=== PATIENT | female | born 1940 | race Caucasian/White ===

== ENCOUNTER 2020-06-20 18:14 | Inpatient (IN) | payer MEDICARE ==
[~2020-06-20 18:14] MED LIST: Iopamidol-370 76% 500 ML 1 ML ONE
[2020-06-20 19:23] LABS: Hemoglobin 15.1 g/dL (12.0-16.0); Mean Corpuscular HGB CONC 32.9 g/dL (32.0-36.0); Mean Corpuscular Volume 94.4 fL (78.0-98.0); Platelet Count 284 thou/uL (130-400); RBC Distribution Width 12.7 % (11.5-14.5); Red Blood Cell (RBC) Count 4.87 mill/uL (4.20-5.40); White Blood Cell (WBC) Count 14.1 thou/uL (4.8-10.8)
--- NOTE | 2020-06-20 19:34 | RAD ---
EXAM: Single view of the chest HISTORY: Covid pneumonia with low oxygen saturation COMPARISON: None FINDINGS: Single view of the chest shows a normal sized cardiomediastinal silhouette. Atheroscleroti c calcifications are seen in the aorta. Diffuse multifocal scattered infiltrates are seen in the lungs. No pleural effusion is seen. No acute osseous abnormality. IMPRESSION: Multifocal infiltrates
[2020-06-20 19:41] LABS: ALT (SGPT) 24 U/L (8-55); AST (SGOT) 17 U/L (5-34); Albumin 3.4 g/dL (3.4-4.8); Alkaline Phosphatase 100 U/L (40-110); Anion Gap 21 mmol/L (10-20); BUN (Urea Nitrogen) 37 mg/dL (9.8-20.1); Band 2 % (5-11); CK (CPK) 36 U/L (29-168); Calc. Creatinine Clearance 0 mL/min (70-130); Calcium 8.8 mg/dL (7.8-10.44); Carbon Dioxide 22 mmol/L (23-31); Chloride 104 mmol/L (98-107); Globulin 3.7 g/dL (2.4-3.5); Glucose 137 mg/dL (83-110); Lymphocytes 6 % (21-51); MDiff Complete? YES; Monocytes 6 % (0-10); Neutrophil 86 % (42-75); Platelet Morphology Comment Appears Adequate; Potassium 3.3 mmol/L (3.5-5.1); Protein, Total 7.1 g/dL (6.0-8.3); RBC Morphology Normal; Sodium 144 mmol/L (136-145)
[2020-06-20] MEDS ORDERED: cefTRIAXone\\ROCEPHIN 2 GM VIAL ONE (21:33)
[2020-06-20] MEDS ORDERED: Dexamethasone 10 MG/ML VIAL ONE (21:33)
--- NOTE | 2020-06-20 21:56 | PDOC.HHP ---
Hospitalist HPI - History of Present Illness Hypoxia, shortness of breath History of Present Illness: This is a 80-year-old female patient with a history of Alzheimer's disease, high lipidemia and hypertension who was brought in from her care home on account of worsening shortness of breath and hypoxia. She tested positive for Covid at the facility. It is unclear the date. Given patient's state of dementia she is unable to provide significant history. Of note however EMS was activated and she was brought in for further management. At presentation her blood pressure was 178/85, respiratory 22, saturating 79 on 4 L oxygen. Heart rate was 87. Labs showed WBC 14.1, creatinine 0.73, potassium 3.3 and lactic acid 2.5. Chest imaging was consistent with Covid. She was started on azithromycin and ceftriaxone as well as Proventil and Decadron. Hospitalist team consulted for admission. Hospitalist ROS - Review of Systems ROS unobtainable: due to mental status Hospitalist History - Past Medical History Other Medical History: Dementia, hypertension - Past Surgical History Past Surgical History: reports: no pertinent history - Family History Family History: reports: no pertinent history - Social History Living Situation: Long-Term - Exam General Appearance: awake alert Eye: PERRL, anicteric sclera ENT: normocephalic atraumatic, no oropharyngeal lesions Heart: RRR, no murmur, no gallops, no rubs Respiratory - other findings: Reduced air entry bilaterally. Scattered rhonchi and wheeze Gastrointestinal: soft, non-tender, non-distended, normal bowel sounds Extremities: no cyanosis, no clubbing, no edema Neurological: cranial nerve grossly intact, no focal deficits Psychiatric: oriented to person Psychiatric - other findings: Generally confused. Hospitalist Results - Labs Result Diagrams: 06/20/20 19:11 06/20/20 19:11 Lab results: WBC 14.1 thou/uL (4.8-10.8) H 06/20/20 19:11 Hgb 15.1 g/dL (12.0-16.0) 06/20/20 19:11 Hct 46.0 % (36.0-47.0) 06/20/20 19:11 MCV 94.4 fL (78.0-98.0) 06/20/20 19:11 Plt Count 284 thou/uL (130-400) 06/20/20 19:11 Band Neuts % (Manual) 2 % (5-11) L 06/20/20 19:11 Sodium 144 mmol/L (136-145) 06/20/20 19:11 Potassium 3.3 mmol/L (3.5-5.1) L 06/20/20 19:11 Chloride 104 mmol/L (98-107) 06/20/20 19:11 Carbon Dioxide 22 mmol/L (23-31) L 06/20/20 19:11 BUN 37 mg/dL (9.8-20.1) H 06/20/20 19:11 Creatinine 0.73 mg/dL (0.6-1.1) 06/20/20 19:11 Glucose 137 mg/dL (83-110) H 06/20/20 19:11 Lactic Acid 2.5 mmol/L (0.5-2.2) H 06/20/20 19:11 Calcium 8.8 mg/dL (7.8-10.44) 06/20/20 19:11 Total Bilirubin 1.0 mg/dL (0.2-1.2) 06/20/20 19:11 AST 17 U/L (5-34) 06/20/20 19:11 ALT 24 U/L (8-55) 06/20/20 19:11 Alkaline Phosphatase 100 U/L (40-110) 06/20/20 19:11 Creatine Kinase 36 U/L (29-168) 06/20/20 19:11 Troponin I 0.026 ng/mL (< 0.028) 06/20/20 19:11 Serum Total Protein 7.1 g/dL (6.0-8.3) 06/20/20 19:11 Albumin 3.4 g/dL (3.4-4.8) 06/20/20 19:11 Hospitalist H&P A/P - Plan Plan: This is a 80-year-old female patient with a history of dementia, hypertension who was brought in from a care home facility on account of worsening shortness of breath and hypoxia in the setting of Covid. Acute hypoxic respiratory failure This likely secondary to Covid pneumonia Continue high flow oxygen therapy With this history Pneumonia due to Covid Check CRP and ferritin Start Decadron Start vitamin C and zinc Consider remdesivir and plasma in a.m. Mild lactic acidosis Also has mild leukocytosis I believe this is likely due to Covid infection However she received azithromycin and ceftriaxone We will check urinalysis and resume antibiotics if is positive Hypertension Resume home meds once verified. VT prophylaxisLovenox CODE STATUSfull code
[2020-06-20] MEDS ORDERED: Azithromycin 500 MG VIAL ONE (22:32)
[2020-06-20 22:39] LABS: Lactic Acid 1.7 mmol/L (0.5-2.2)
--- NOTE | 2020-06-20 22:41 | CT ---
EXAM: CTA of the chest HISTORY: Hypoxia and shortness of breath COMPARISON: None TECHNIQUE: Multiple contiguous axial images were obtained a CTA of the chest with contrast per pulmon rolanda embolism protocol. 3-D oblique MIP reformats and direct coronal reformats were performed. FINDINGS: HEART: Cardiomegaly. Calcifications in the coronary arteries and aorta. PULMONARY ARTERIES: Normal in caliber without filling defects to suggest pulmonary emboli. MEDIASTINUM: No hilar or mediastinal lymphadenopathy. LUNGS: Diffuse increased interstitial markings are seen along the periphery of the lungs. There may b e subtle superimposed airspace opacities versus atelectasis in the bilateral lower lobes. PLEURAL SPACE: No pleural effusion or pneumothorax. CHEST WALL SOFT TISSUES: Post left mastectomy. VISUALIZED OSSEOUS STRUCTURES: Degenerative changes in the spine. VISUALIZED SUBDIAPHRAGMATIC STRUCTURES: There is a hypodensity in the left kidney which may represent a cyst. There is a 1.5 cm left adrenal mass. IMPRESSION: 1. No evidence of pulmonary thromboembolism 2. Chronic interstitial lung disease with superimposed multifocal infiltrates. These infiltrates coul d be secondary to a Covid infection. 3. Left renal cyst 4. Left adrenal mass/nodule.
[2020-06-20] MEDS ORDERED: Albuterol 200 PUFF (6.7GM INHALER) ONE (23:32)
[2020-06-21] MEDS ORDERED: Potassium Chloride 20 MEQ TAB PO SCH (03:30)
[2020-06-21 05:32] LABS: #Basophils 0.1 thou/uL (0.0-0.2); #Lymphocytes 0.7 thou/uL (1.20-3.40); #Monocytes 0.5 thou/uL (0.11-0.59); #Neutrophils 11.3 thou/uL (1.40-6.50); %Basophils 0.6 % (0.0-1.0); %Eosinophils 0.3 % (0.0-10.0); %Lymphocytes 5.7 % (21.0-51.0); %Monocytes 3.6 % (0.0-10.0); %Neutrophils 89.7 % (42.0-75.0); Hemoglobin 14.5 g/dL (12.0-16.0); Mean Corpuscular HGB CONC 32.7 g/dL (32.0-36.0); Mean Corpuscular Hemoglobin 31.3 pg (27.0-31.0); Mean Corpuscular Volume 95.5 fL (78.0-98.0); Platelet Count 311 thou/uL (130-400); RBC Distribution Width 12.8 % (11.5-14.5); Red Blood Cell (RBC) Count 4.63 mill/uL (4.20-5.40); White Blood Cell (WBC) Count 12.6 thou/uL (4.8-10.8)
[2020-06-21 05:52] LABS: CRP (Inflammatory) 17.21 mg/dL (= or < 0.5); Magnesium 2.6 mg/dL (1.6-2.6)
[2020-06-21 05:57] LABS: Anion Gap 16 mmol/L (10-20); BUN (Urea Nitrogen) 39 mg/dL (9.8-20.1); Calc. Creatinine Clearance 0 mL/min (70-130); Calcium 8.7 mg/dL (7.8-10.44); Carbon Dioxide 28 mmol/L (23-31); Chloride 104 mmol/L (98-107); Glucose 144 mg/dL (83-110); Potassium 3.2 mmol/L (3.5-5.1); Sodium 145 mmol/L (136-145)
[2020-06-21] MEDS: Zinc Sulfate 220 MG CAP PO SCH (08:47)
[2020-06-21] MEDS: Dexamethasone 4 mg/ml Vial SLOW IVP SCH (08:47)
[2020-06-21] MEDS: Ascorbic Acid 500 mg Chewable Tablet PO SCH (08:47)
[2020-06-21] MEDS: Enoxaparin Sodium 40 MG/0.4 ML SYRINGE SC SCH (08:48)
[2020-06-21] MEDS: Cholecalciferol (Vitamin D3) 400 UNITS TAB PO SCH (09:20)
[2020-06-21] MEDS ORDERED: Electrolyte Replacement Protocol 1 EACH FS SCH (10:45)
[2020-06-21 11:08] LABS: Bacteria/HPF None Seen HPF (None Seen); Bilirubin Negative (Negative); Blood, Urine Negative (Negative); Clarity Clear (Clear); Glucose, Urine (Dipstick) Normal (Negative); Ketone, Urine Negative (Negative); Leukocyte Negative Leu/uL (Negative); Nitrite Negative (Negative); Protein, Urine (Dipstick) 30 mg/dL (Neg-Trace); RBC/HPF 0-3 HPF (0-3); Specific Gravity, Urine 1.026 (1.002-1.036); Squamous Epithelial None Seen HPF (0-3); Urobilinogen 3 mg/dL (Less than 2); WBC/HPF 0-3 HPF (0-3)
[2020-06-21 11:11] LABS: Urine Culture Reflex No No
[2020-06-21] MEDS ORDERED: FLU VACC QS2020-21(65YR UP)/PF 240 MCG/0.7 ML SYRINGE IM ONE (13:30)
[2020-06-21] MEDS ORDERED: Ipratropium/Albuterol Sulfate 4 GM AER IH PRN (14:08)
[2020-06-21] MEDS ORDERED: Melatonin 3 MG TAB PO PRN (17:10)
--- NOTE | 2020-06-21 17:10 | PDOC.HOSPP ---
- Subjective Encounter Date: 06/21/20 Encounter Time: 12:30 Subjective: Patient up in bed confused. - Objective Vital Signs & Weight: Vital Signs (12 hours) Temp Pulse Resp BP Pulse Ox 06/21/20 16:00 98.3 F 76 20 154/77 H 97 06/21/20 12:00 98.2 F 81 20 160/80 H 95 06/21/20 09:00 98.2 F 72 18 148/72 H 98 06/21/20 05:45 98.0 F 68 18 150/63 H 98 Weight Weight 178 lb 8 oz I&O: 06/20/20 06/21/20 06/22/20 06:59 06:59 06:59 Output Total 800 Balance -800 Result Diagrams: 06/22/20 05:45 06/22/20 05:45 Hospitalist ROS - Review of Systems Other: Patient up in bed confused - Medication Medications: Active Medications Generic Name Dose Route Start Last Admin Trade Name Freq PRN Reason Stop Dose Admin Ascorbic Acid 1,000 mg 06/21/20 09:00 06/21/20 08:47 Ascorbic Acid 500 Mg Chewable Tablet PO 1,000 mg DAILY LISBETH Administration Cholecalciferol 400 units 06/21/20 09:00 06/21/20 09:20 Cholecalciferol (Vitamin D3) 400 Units Tab PO 400 units DAILY LISBETH Administration Dexamethasone 8 mg 06/21/20 09:00 06/21/20 08:47 Dexamethasone 4 Mg/Ml Vial SLOW IVP 8 mg DAILY LISBETH Administration Enoxaparin Sodium 40 mg 06/21/20 09:00 06/21/20 08:48 Enoxaparin Sodium 40 Mg/0.4 Ml Syringe SC 40 mg 09 LISBETH Administration Zinc Sulfate 220 mg 06/21/20 09:00 06/21/20 08:47 Zinc Sulfate 220 Mg Cap PO 220 mg DAILY LISBETH Administration - Exam Heart: negative: RRR, no murmur, no gallops, no rubs, normal peripheral pulses, irregular, diminshed peripheral pulses, murmur present, II/IV, III/IV Respiratory: negative: CTAB, no wheezes, no rales, no ronchi, normal chest expansion, no tachypnea, normal percussion, rales, rhonchi, tachypneic, wheezes Gastrointestinal: negative: soft, non-tender, non-distended, normal bowel sounds, no palpable masses, no hepatomegaly, no splenomegaly, no bruit, no guarding, no rigidity, tender to palpation, distended, diminished bowl sounds, voluntary guarding Hosp A/P (1) Acute respiratory failure with hypoxia Code(s): J96.01 - ACUTE RESPIRATORY FAILURE WITH HYPOXIA Status: Acute (2) COVID-19 Code(s): U07.1 - COVID-19 Status: Acute (3) Acute metabolic encephalopathy Code(s): G93.41 - METABOLIC ENCEPHALOPATHY Status: Acute - Plan Patient currently is on soft restraints she is confused. We will start her home medications. She is currently on high flow. We will continue steroids. She is not a candidate for remdesivir. According to the patient's daughter she was supposed to be taken off isolation yesterday however when her oxygen level was checked it was low. We will give her convalescent plasma. We will continue inh omar. I did speak with her daughter Trinidad who is the POA and does not want the patient to be resuscitated per patient's wishes. Will make the patient DO NOT RESUSCITATE.
[2020-06-21] MEDS: Ipratropium/Albuterol Sulfate 4 GM AER IH SCH ×2 (19:53→20:11)
[2020-06-21] MEDS: Gabapentin 100 MG CAP PO SCH (20:12)
[2020-06-21] MEDS: lamoTRIgine 100 MG TAB PO SCH (20:12)
[2020-06-22] MEDS: Ipratropium/Albuterol Sulfate 4 GM AER IH SCH ×4 (05:18→17:52)
[2020-06-22 06:21] LABS: ALT (SGPT) 21 U/L (8-55); AST (SGOT) 17 U/L (5-34); Albumin 3.1 g/dL (3.4-4.8); Alkaline Phosphatase 83 U/L (40-110); Anion Gap 13 mmol/L (10-20); BUN (Urea Nitrogen) 27 mg/dL (9.8-20.1); Bilirubin, Total 0.8 mg/dL (0.2-1.2); CRP (Inflammatory) 8.27 mg/dL (= or < 0.5); Calc. Creatinine Clearance 90 mL/min (70-130); Calcium 8.4 mg/dL (7.8-10.44); Carbon Dioxide 25 mmol/L (23-31); Chloride 106 mmol/L (98-107); Globulin 3.2 g/dL (2.4-3.5); Glucose 95 mg/dL (83-110); Potassium 3.4 mmol/L (3.5-5.1); Protein, Total 6.3 g/dL (6.0-8.3); Sodium 141 mmol/L (136-145)
[2020-06-22 06:30] LABS: Band 9 % (5-11); Hemoglobin 13.3 g/dL (12.0-16.0); Lymphocytes 6 % (21-51); MDiff Complete? YES; Mean Corpuscular HGB CONC 32.7 g/dL (32.0-36.0); Mean Corpuscular Hemoglobin 31.3 pg (27.0-31.0); Mean Corpuscular Volume 95.9 fL (78.0-98.0); Mean Platelet Volume 7.1 fL (7.4-10.4); Monocytes 4 % (0-10); Neutrophil 81 % (42-75); Platelet Count 231 thou/uL (130-400); Platelet Morphology Comment Appears Adequate; RBC Distribution Width 12.7 % (11.5-14.5); RBC Morphology Normal; Red Blood Cell (RBC) Count 4.24 mill/uL (4.20-5.40); White Blood Cell (WBC) Count 12.2 thou/uL (4.8-10.8)
[2020-06-22] MEDS ORDERED: Potassium Chloride 20 MEQ TAB PO SCH (06:45)
[2020-06-22] MEDS: Simvastatin 5 MG TAB PO SCH (08:46)
[2020-06-22] MEDS: Ascorbic Acid 500 mg Chewable Tablet PO SCH (08:46)
[2020-06-22] MEDS: Zinc Sulfate 220 MG CAP PO SCH ×2 (08:46→08:48)
[2020-06-22] MEDS: Calcium Carbonate 600 MG + Vit D TAB PO SCH (08:46)
[2020-06-22] MEDS: Fish Oil 1,000 MG CAP PO SCH (08:47)
[2020-06-22] MEDS: Folic Acid 1 MG TAB PO SCH (08:47)
[2020-06-22] MEDS: Aspirin 81 mg Enteric Coated Tablet PO SCH (08:47)
[2020-06-22] MEDS: lamoTRIgine 100 MG TAB PO SCH ×2 (08:47→20:50)
[2020-06-22] MEDS: Gabapentin 100 MG CAP PO SCH ×4 (08:47→20:50)
[2020-06-22] MEDS: Cyanocobalamin (Vitamin B-12) 1,000 MCG TAB PO SCH (08:47)
[2020-06-22] MEDS: Cholecalciferol (Vitamin D3) 400 UNITS TAB PO SCH (08:48)
[2020-06-22] MEDS: Enoxaparin Sodium 40 MG/0.4 ML SYRINGE SC SCH (08:48)
[2020-06-22] MEDS: Dexamethasone 4 mg/ml Vial SLOW IVP SCH (08:48)
[2020-06-22] MEDS: Amlodipine 5 mg/Benazepril 20 mg CAP PO SCH (08:50)
[2020-06-22 10:30] VITALS: BMI 30.5
--- NOTE | 2020-06-22 14:33 | PDOC.HOSPP ---
- Subjective Encounter Date: 06/22/20 Encounter Time: 10:30 Subjective: She is up in bed confused. - Objective Vital Signs & Weight: Vital Signs (12 hours) Temp Pulse Resp BP Pulse Ox 06/22/20 14:00 97.7 F 72 18 95 06/22/20 10:00 98.4 F 81 20 170/78 H 92 L 06/22/20 04:00 98.3 F 97 18 149/63 H 91 L Weight Weight 178 lb I&O: 06/21/20 06/22/20 06/23/20 06:59 06:59 06:59 Output Total 1650 Balance -1650 Result Diagrams: 06/22/20 05:45 06/22/20 05:45 Hospitalist ROS - Medication Medications: Active Medications Generic Name Dose Route Start Last Admin Trade Name Freq PRN Reason Stop Dose Admin Albuterol/Ipratropium 0 gm 06/21/20 15:00 06/22/20 14:18 Ipratropium/Albuterol Sulfate 4 Gm Aer IH 1 puff QID-RT LISBETH Administration Amlodipine/Benazepril HCl 1 cap 06/22/20 09:00 06/22/20 08:50 Amlodipine 5 Mg/Benazepril 20 Mg Cap PO 1 cap DAILY LISBETH Administration Ascorbic Acid 1,000 mg 06/21/20 09:00 06/22/20 08:46 Ascorbic Acid 500 Mg Chewable Tablet PO 1,000 mg DAILY LISBETH Administration Aspirin 81 mg 06/22/20 09:00 06/22/20 08:47 Aspirin 81 Mg Enteric Coated Tablet PO 81 mg DAILY LISBETH Administration Calcium/Vitamin D 1 tab 06/22/20 09:00 06/22/20 08:46 Calcium Carbonate 600 Mg + Vit D Tab PO 07/06/20 09:01 1 tab DAILY LISBETH Administration Cholecalciferol 400 units 06/21/20 09:00 06/22/20 08:48 Cholecalciferol (Vitamin D3) 400 Units Tab PO 400 units DAILY LISBETH Administration Cyanocobalamin 1,000 mcg 06/22/20 09:00 06/22/20 08:47 Cyanocobalamin (Vitamin B-12) 1,000 Mcg Tab PO 1,000 mcg DAILY LISBETH Administration Enoxaparin Sodium 40 mg 06/21/20 09:00 06/22/20 08:48 Enoxaparin Sodium 40 Mg/0.4 Ml Syringe SC 40 mg 0900 LISBETH Administration Fish Oil 2,000 mg 06/22/20 09:00 06/22/20 08:47 Fish Oil 1,000 Mg Cap PO 2,000 mg DAILY LISBETH Administration Folic Acid 1 mg 06/22/20 09:00 06/22/20 08:47 Folic Acid 1 Mg Tab PO 1 mg DAILY LISBETH Administration Gabapentin 100 mg 06/21/20 21:00 06/22/20 14:17 Gabapentin 100 Mg Cap PO 100 mg QID LISBETH Administration Lamotrigine 100 mg 06/21/20 21:00 06/22/20 08:47 Lamotrigine 100 Mg Tab PO 100 mg Q12HR LISBETH Administration Memantine 10 mg 06/21/20 21:00 06/22/20 08:47 Memantine Hcl 10 Mg Tab PO 10 mg BID LISBETH Administration Metoprolol Succinate 25 mg 06/22/20 09:00 06/22/20 08:47 Metoprolol Succinate Xl 25 Mg Tab PO 25 mg DAILY LISBETH Administration Quetiapine Fumarate 50 mg 06/21/20 21:00 06/22/20 08:47 Quetiapine Fumarate 25 Mg Tab PO 50 mg BID LISBETH Administration Simvastatin 5 mg 06/22/20 09:00 06/22/20 08:46 Simvastatin 5 Mg Tab PO 5 mg DAILY LISBETH Administration Zinc Sulfate 220 mg 06/22/20 09:00 06/22/20 08:48 Zinc Sulfate 220 Mg Cap PO 07/06/20 09:01 Not Given DAILY LISBETH - Exam Neck: negative: supple, symmetric, no JVD, no thyromegaly, no lymphadenopathy, no carotid bruit, JVD Heart: negative: RRR, no murmur, no gallops, no rubs, normal peripheral pulses, irregular, diminshed peripheral pulses, murmur present, II/IV, III/IV Respiratory: negative: CTAB, no wheezes, no rales, no ronchi, normal chest expansion, no tachypnea, normal percussion, rales, rhonchi, tachypneic, wheezes Gastrointestinal: negative: soft, non-tender, non-distended, normal bowel sounds, no palpable masses, no hepatomegaly, no splenomegaly, no bruit, no guarding, no rigidity, tender to palpation, distended, diminished bowl sounds, voluntary guarding Hosp A/P (1) Acute respiratory failure with hypoxia Code(s): J96.01 - ACUTE RESPIRATORY FAILURE WITH HYPOXIA Status: Acute (2) COVID-19 Code(s): U07.1 - COVID-19 Status: Acute (3) Acute metabolic encephalopathy Code(s): G93.41 - METABOLIC ENCEPHALOPATHY Status: Acute - Plan Patient currently is on soft restraints she is confused. We will start her home medications. She is currently on high flow. We will continue steroids. She is not a candidate for remdesivir. According to the patient's daughter she was supposed to be taken off isolation yesterday however when her oxygen level was checked it was low. We will give her convalescent plasma. We will continue inhalers. I did speak with her daughter Trinidad who is the POA and does not want the patient to be resuscitated per patient's wishes. Will make the patient DO NOT RESUSCITATE. 06/22 patient's oxygen levels were low her oxygen was titrated up. We will continue steroids for now. Patient continues to be confused. Patient received convalescent plasma. We will add Dulera. She is not a candidate for remdesivir.
[2020-06-22] MEDS: ALPRAZolam 0.25 MG TAB PO PRN (16:18)
[2020-06-23 01:27] LABS: Actual Bicarbonate (HCO3a) 22.4 mEq/L (22-28); Base Excess (BEa) -0.3 mEq/L (-2.0 to +3.0); O2 Tension (PaO2), arterial 37.8 mmHg (> 70.0); pH, Arterial 7.48 (7.35-7.45)
[2020-06-23 01:28] LABS: Calcium, Ionized (arterial) 1.19 mmol/L (1.12-1.30); Carboxyhemoglobin (COHb) 0.2 gm% (0.0-3.0); Potassium - ABG Lab 3.77 mmol/L (3.70-5.30)
[2020-06-23 01:29] LABS: Analyzer IN Cardio ER; Puncture Site RRA
[2020-06-23] MEDS: Mometasone 100 MCG/Formoterol 5 MCG 120 PUFF INHALER INH SCH ×3 (01:54→20:38)
--- NOTE | 2020-06-23 02:18 | PDOC.BPN ---
- Brief Progress Note Encounter Date: 06/23/20 Patient started to desaturate early this morning and was a bit more altered. Sats decreased to the low 80s on maximal high flow Family was called but we could not get in touch if any of them. Chest x-ray was done showed consistent with Covid pneumonia with worsening of infiltrates. Plan to transition her onto BiPAP in IMCU for now. We we will continue to try to contact family She is DNR
[2020-06-23] MEDS: Ipratropium/Albuterol Sulfate 4 GM AER IH SCH ×3 (03:54→20:39)
--- NOTE | 2020-06-23 08:54 | RAD ---
Chest AP view INDICATION: Hypoxia COMPARISON: June 20, 2020 FINDINGS: Lungs: Bilateral airspace disease persists Cardiac silhouette: Mild cardiomegaly is stable Pulmonary vasculature: Normal Pleural spaces: No pleural effusion or pneumothorax is demonstrated. Upper abdomen: No abnormality seen. Osseous structures: Stable bone Additional findings: None. IMPRESSION: Stable bilateral pneumonia
[2020-06-23] MEDS: Dexamethasone 4 mg/ml Vial SLOW IVP SCH (08:58)
[2020-06-23] MEDS: Fish Oil 1,000 MG CAP PO SCH (08:59)
[2020-06-23] MEDS: Aspirin 81 mg Enteric Coated Tablet PO SCH (08:59)
[2020-06-23] MEDS: Calcium Carbonate 600 MG + Vit D TAB PO SCH (08:59)
[2020-06-23] MEDS: Ascorbic Acid 500 mg Chewable Tablet PO SCH (08:59)
[2020-06-23] MEDS: Enoxaparin Sodium 40 MG/0.4 ML SYRINGE SC SCH (08:59)
[2020-06-23] MEDS: Folic Acid 1 MG TAB PO SCH (08:59)
[2020-06-23] MEDS: Cyanocobalamin (Vitamin B-12) 1,000 MCG TAB PO SCH (08:59)
[2020-06-23] MEDS: Amlodipine 5 mg/Benazepril 20 mg CAP PO SCH (08:59)
[2020-06-23] MEDS: Cholecalciferol (Vitamin D3) 400 UNITS TAB PO SCH (08:59)
[2020-06-23] MEDS: Gabapentin 100 MG CAP PO SCH ×3 (09:00→20:48)
[2020-06-23] MEDS: Zinc Sulfate 220 MG CAP PO SCH (09:00)
[2020-06-23] MEDS: lamoTRIgine 100 MG TAB PO SCH ×2 (09:00→20:48)
[2020-06-23] MEDS: Simvastatin 5 MG TAB PO SCH (09:00)
[2020-06-23 09:15] LABS: #Eosinphils 0.1 thou/uL (0.0-0.7); #Lymphocytes 0.6 thou/uL (1.20-3.40); #Monocytes 0.4 thou/uL (0.11-0.59); #Neutrophils 11.4 thou/uL (1.40-6.50); %Basophils 0.3 % (0.0-1.0); %Eosinophils 0.6 % (0.0-10.0); %Lymphocytes 4.9 % (21.0-51.0); %Monocytes 2.8 % (0.0-10.0); %Neutrophils 91.4 % (42.0-75.0); Mean Corpuscular HGB CONC 31.9 g/dL (32.0-36.0); Platelet Count 146 thou/uL (130-400); RBC Distribution Width 12.9 % (11.5-14.5); White Blood Cell (WBC) Count 12.5 thou/uL (4.8-10.8)
[2020-06-23 09:30] LABS: ALT (SGPT) 19 U/L (8-55); AST (SGOT) 21 U/L (5-34); Albumin 2.9 g/dL (3.4-4.8); Alkaline Phosphatase 83 U/L (40-110); Anion Gap 16 mmol/L (10-20); BUN (Urea Nitrogen) 28 mg/dL (9.8-20.1); CRP (Inflammatory) 18.13 mg/dL (= or < 0.5); Calc. Creatinine Clearance 72 mL/min (70-130); Calcium 8.3 mg/dL (7.8-10.44); Carbon Dioxide 24 mmol/L (23-31); Chloride 107 mmol/L (98-107); Globulin 3.3 g/dL (2.4-3.5); Glucose 132 mg/dL (83-110); Potassium 4.7 mmol/L (3.5-5.1); Protein, Total 6.2 g/dL (6.0-8.3); Sodium 142 mmol/L (136-145)
--- NOTE | 2020-06-23 14:41 | PDOC.HOSPP ---
- Subjective Encounter Date: 06/23/20 Encounter Time: 12:30 Subjective: pt on bipap - Objective Vital Signs & Weight: Vital Signs (12 hours) Temp Pulse Pulse Ox 06/23/20 08:00 91 L 06/23/20 07:17 97.4 F L 06/23/20 05:00 98.1 F 06/23/20 04:39 66 Weight Weight 178 lb Most Recent Monitor Data Heart Rate from ECG 78 NIBP 161/99 NIBP BP-Mean 119 Respiration from ECG 28 SpO2 92 I&O: 06/22/20 06/23/20 06/24/20 06:59 06:59 06:59 Intake Total 31.3 Output Total 1650 520 Balance -1650 -488.7 Result Diagrams: 06/23/20 08:46 06/23/20 08:46 Additional Labs: Accuchecks 06/23/20 01:12 POC Glucose 117 H Hospitalist ROS - Review of Systems Other: on bipap - Medication Medications: Active Medications Generic Name Dose Route Start Last Admin Trade Name Freq PRN Reason Stop Dose Admin Albuterol/Ipratropium 0 gm 06/21/20 15:00 06/23/20 03:54 Ipratropium/Albuterol Sulfate 4 Gm Aer IH Not Given QID-RT LISBETH Alprazolam 0.25 mg 06/22/20 09:26 06/22/20 16:18 Alprazolam 0.25 Mg Tab PO 0.25 mg BIDPRN PRN Administration Anxiety Amlodipine/Benazepril HCl 1 cap 06/22/20 09:00 06/23/20 08:59 Amlodipine 5 Mg/Benazepril 20 Mg Cap PO Not Given DAILY LISBETH Ascorbic Acid 1,000 mg 06/21/20 09:00 06/23/20 08:59 Ascorbic Acid 500 Mg Chewable Tablet PO Not Given DAILY LISBETH Aspirin 81 mg 06/22/20 09:00 06/23/20 08:59 Aspirin 81 Mg Enteric Coated Tablet PO Not Given DAILY LISBETH Calcium/Vitamin D 1 tab 06/22/20 09:00 06/23/20 08:59 Calcium Carbonate 600 Mg + Vit D Tab PO 07/06/20 09:01 Not Given DAILY LISBETH Cholecalciferol 400 units 06/21/20 09:00 06/23/20 08:59 Cholecalciferol (Vitamin D3) 400 Units Tab PO Not Given DAILY [facility] Cyanocobalamin 1,000 mcg 06/22/20 09:00 06/23/20 08:59 Cyanocobalamin (Vitamin B-12) 1,000 Mcg Tab PO Not Given DAILY [facility] Dexamethasone 6 mg 06/23/20 09:00 06/23/20 08:58 Dexamethasone 4 Mg/Ml Vial SLOW IVP 6 mg DAILY [facility] Administration Enoxaparin Sodium 40 mg 06/21/20 09:00 06/23/20 08:59 Enoxaparin Sodium 40 Mg/0.4 Ml Syringe SC 40 mg 0900 [facility] Administration Fish Oil 2,000 mg 06/22/20 09:00 06/23/20 08:59 Fish Oil 1,000 Mg Cap PO Not Given DAILY [facility] Folic Acid 1 mg 06/22/20 09:00 06/23/20 08:59 Folic Acid 1 Mg Tab PO Not Given DAILY [facility] Gabapentin 100 mg 06/21/20 21:00 06/23/20 09:00 Gabapentin 100 Mg Cap PO Not Given QID [facility] Dexmedetomidine HCl 400 mcg/ 100 mls @ 0 mls/hr 06/23/20 02:00 06/23/20 02:11 Sodium Chloride IVPB 100 mls INF [facility] Administration Protocol Titrate Lamotrigine 100 mg 06/21/20 21:00 06/23/20 09:00 Lamotrigine 100 Mg Tab PO Not Given Q12HR [facility] Memantine 10 mg 06/21/20 21:00 06/23/20 09:00 Memantine Hcl 10 Mg Tab PO Not Given BID [facility] Metoprolol Succinate 25 mg 06/22/20 09:00 06/23/20 09:00 Metoprolol Succinate Xl 25 Mg Tab PO Not Given DAILY [facility] Mometasone Furoate/Formoterol Fumar 1 puff 06/22/20 18:30 06/23/20 03:53 Mometasone 100 Mcg/Formoterol 5 Mcg 120 Puff Inhaler INH Not Given BID-RT [facility] Quetiapine Fumarate 50 mg 06/21/20 21:00 06/23/20 09:00 Quetiapine Fumarate 25 Mg Tab PO Not Given BID [facility] Simvastatin 5 mg 06/22/20 09:00 06/23/20 09:00 Simvastatin 5 Mg Tab PO Not Given DAILY [facility] Zinc Sulfate 220 mg 06/22/20 09:00 06/23/20 09:00 Zinc Sulfate 220 Mg Cap PO 07/06/20 09:01 Not Given DAILY LISBETH - Exam Heart: negative: RRR, no murmur, no gallops, no rubs, normal peripheral pulses, irregular, diminshed peripheral pulses, murmur present, II/IV, III/IV Respiratory: negative: CTAB, no wheezes, no rales, no ronchi, normal chest expansion, no tachypnea, normal percussion, rales, rhonchi, tachypneic, wheezes Gastrointestinal: negative: soft, non-tender, non-distended, normal bowel sounds, no palpable masses, no hepatomegaly, no splenomegaly, no bruit, no guarding, no rigidity, tender to palpation, distended, diminished bowl sounds, voluntary guarding Extremities: negative: no cyanosis, no clubbing, no edema, 1+ LE edema, 2+ LE edema, clubbing Hosp A/P (1) Acute respiratory failure with hypoxia Code(s): J96.01 - ACUTE RESPIRATORY FAILURE WITH HYPOXIA Status: Acute (2) COVID-19 Code(s): U07.1 - COVID-19 Status: Acute (3) Acute metabolic encephalopathy Code(s): G93.41 - METABOLIC ENCEPHALOPATHY Status: Acute - Plan Patient currently is on soft restraints she is confused. We will start her home medications. She is currently on high flow. We will continue steroids. She is not a candidate for remdesivir. According to the patient's daughter she was supposed to be taken off isolation yesterday however when her oxygen level was checked it was low. We will give her convalescent plasma. We will continue inhalers. I did speak with her daughter Trinidad who is the POA and does not want the patient to be resuscitated per patient's wishes. Will make the patient DO NOT RESUSCITATE. 06/22 patient's oxygen levels were low her oxygen was titrated up. We will con tinue steroids for now. Patient continues to be confused. Patient received convalescent plasma. We will add Dulera. She is not a candidate for remdesivir. 06/23 pt was transferred to [facility] last night. pt is awake and follows command will try to wean off to high flow. crp elevated.
[2020-06-23] MEDS: ALPRAZolam 0.25 MG TAB PO PRN (22:28)
[2020-06-24] MEDS: Ipratropium/Albuterol Sulfate 4 GM AER IH SCH ×2 (06:23→17:05)
[2020-06-24] MEDS: Mometasone 100 MCG/Formoterol 5 MCG 120 PUFF INHALER INH SCH (06:23)
[2020-06-24] MEDS: Simvastatin 5 MG TAB PO SCH (07:58)
[2020-06-24] MEDS: Enoxaparin Sodium 40 MG/0.4 ML SYRINGE SC SCH (07:58)
[2020-06-24] MEDS: Ascorbic Acid 500 mg Chewable Tablet PO SCH (07:59)
[2020-06-24] MEDS: Gabapentin 100 MG CAP PO SCH ×3 (07:59→19:41)
[2020-06-24] MEDS: Cyanocobalamin (Vitamin B-12) 1,000 MCG TAB PO SCH (07:59)
[2020-06-24] MEDS: Calcium Carbonate 600 MG + Vit D TAB PO SCH (08:00)
[2020-06-24] MEDS: Folic Acid 1 MG TAB PO SCH (08:00)
[2020-06-24] MEDS: lamoTRIgine 100 MG TAB PO SCH ×2 (08:00→19:42)
[2020-06-24] MEDS: Fish Oil 1,000 MG CAP PO SCH (08:00)
[2020-06-24] MEDS: Dexamethasone 4 mg/ml Vial SLOW IVP SCH (08:00)
[2020-06-24] MEDS: Aspirin 81 mg Enteric Coated Tablet PO SCH (08:00)
[2020-06-24] MEDS: Zinc Sulfate 220 MG CAP PO SCH (08:34)
[2020-06-24] MEDS: Amlodipine 5 mg/Benazepril 20 mg CAP PO SCH (08:34)
[2020-06-24] MEDS: Cholecalciferol (Vitamin D3) 400 UNITS TAB PO SCH (08:35)
[2020-06-24] MEDS: hydrALAZINE 20 MG/ML VIAL SLOW IVP PRN (17:20)
[2020-06-24] MEDS ORDERED: Acetaminophen 650 MG Suppository PR PRN (22:17)
[2020-06-25] MEDS: Ipratropium/Albuterol Sulfate 4 GM AER IH SCH ×4 (01:34→16:24)
[2020-06-25] MEDS: Mometasone 100 MCG/Formoterol 5 MCG 120 PUFF INHALER INH SCH ×2 (01:34→07:08)
[2020-06-25] MEDS: hydrALAZINE 20 MG/ML VIAL SLOW IVP PRN (07:08)
[2020-06-25] MEDS: Enoxaparin Sodium 40 MG/0.4 ML SYRINGE SC SCH (08:58)
[2020-06-25] MEDS: Dexamethasone 4 mg/ml Vial SLOW IVP SCH (08:58)
[2020-06-25] MEDS: Simvastatin 5 MG TAB PO SCH (08:59)
[2020-06-25] MEDS: Fish Oil 1,000 MG CAP PO SCH (08:59)
[2020-06-25] MEDS: Folic Acid 1 MG TAB PO SCH (09:00)
[2020-06-25] MEDS: Gabapentin 100 MG CAP PO SCH ×3 (09:00→16:24)
[2020-06-25] MEDS: Aspirin 81 mg Enteric Coated Tablet PO SCH (09:00)
[2020-06-25] MEDS: lamoTRIgine 100 MG TAB PO SCH (09:00)
[2020-06-25] MEDS: Calcium Carbonate 600 MG + Vit D TAB PO SCH (09:00)
[2020-06-25] MEDS: Ascorbic Acid 500 mg Chewable Tablet PO SCH (09:00)
[2020-06-25] MEDS: Amlodipine 5 mg/Benazepril 20 mg CAP PO SCH (09:01)
[2020-06-25] MEDS: Cholecalciferol (Vitamin D3) 400 UNITS TAB PO SCH (09:01)
[2020-06-25] MEDS: Zinc Sulfate 220 MG CAP PO SCH (09:01)
[2020-06-25] MEDS: Cyanocobalamin (Vitamin B-12) 1,000 MCG TAB PO SCH (09:01)
--- NOTE | 2020-06-25 15:59 | PDOC.HOSPP ---
- Subjective Encounter Date: 06/24/20 Encounter Time: 10:30 Subjective: Patient appears more obtunded than yesterday. She has becomes very hypoxic when transition to high flow. - Objective Vital Signs & Weight: Vital Signs (12 hours) Temp Pulse Resp BP BP Pulse Ox 06/25/20 14:00 174/79 H 06/25/20 12:00 98.4 F 161/74 H 06/25/20 08:00 97.4 F L 194/82 H 06/25/20 07:09 99.3 F 97 24 H 190/84 H 06/25/20 07:08 97 190/84 H 06/25/20 04:00 98.9 F 102 H 22 H 167/71 H 95 Weight Weight 178 lb Most Recent Monitor Data Heart Rate from ECG 104 NIBP 199/81 NIBP BP-Mean 120 Respiration from ECG 26 SpO2 94 I&O: 06/24/20 06/25/20 06/26/20 06:59 06:59 06:59 Intake Total 450 Output Total 350 100 400 Balance 100 -100 -400 Result Diagrams: 06/23/20 08:46 06/23/20 08:46 Hospitalist ROS - Review of Systems Other: Unable to obtain - Medication Medications: Active Medications Generic Name Dose Route Start Last Admin Trade Name Freq PRN Reason Stop Dose Admin Acetaminophen 650 mg 06/24/20 22:17 06/24/20 22:30 Acetaminophen 650 Mg Suppository NC 650 mg Q4H PRN Administration Headache/Fever or Pain Albuterol/Ipratropium 0 gm 06/21/20 15:00 06/25/20 12:13 Ipratropium/Albuterol Sulfate 4 Gm Aer IH 1 puff QID-RT LISBETH Administration Alprazolam 0.25 mg 06/22/20 09:26 06/23/20 22:28 Alprazolam 0.25 Mg Tab PO 0.25 mg BIDPRN PRN Administration Anxiety Amlodipine/Benazepril HCl 1 cap 06/22/20 09:00 06/25/20 09:01 Amlodipine 5 Mg/Benazepril 20 Mg Cap PO 1 cap DAILY LISBETH Administration Ascorbic Acid 1,000 mg 06/21/20 09:00 06/25/20 09:00 Ascorbic Acid 500 Mg Chewable Tablet PO 1,000 mg DAILY LISBETH Administration Aspirin 81 mg 06/22/20 09:00 06/25/20 09:00 Aspirin 81 Mg Enteric Coated Tablet PO 81 mg DAILY LISBETH Administration Calcium/Vitamin D 1 tab 06/22/20 09:00 06/25/20 09:00 Calcium Carbonate 600 Mg + Vit D Tab PO 07/06/20 09:01 1 tab DAILY LISBETH Administration Cholecalciferol 400 units 06/21/20 09:00 06/25/20 09:01 Cholecalciferol (Vitamin D3) 400 Units Tab PO 400 units DAILY LISBETH Administration Cyanocobalamin 1,000 mcg 06/22/20 09:00 06/25/20 09:01 Cyanocobalamin (Vitamin B-12) 1,000 Mcg Tab PO 1,000 mcg DAILY LISBETH Administration Dexamethasone 6 mg 06/23/20 09:00 06/25/20 08:58 Dexamethasone 4 Mg/Ml Vial SLOW IVP 6 mg DAILY LISBETH Administration Enoxaparin Sodium 40 mg 06/21/20 09:00 06/25/20 08:58 Enoxaparin Sodium 40 Mg/0.4 Ml Syringe SC 40 mg 0900 LISBETH Administration Fish Oil 2,000 mg 06/22/20 09:00 06/25/20 08:59 Fish Oil 1,000 Mg Cap PO 2,000 mg DAILY LISBETH Administration Folic Acid 1 mg 06/22/20 09:00 06/25/20 09:00 Folic Acid 1 Mg Tab PO 1 mg DAILY LISBETH Administration Gabapentin 100 mg 06/21/20 21:00 06/25/20 13:45 Gabapentin 100 Mg Cap PO 100 mg QID LISBETH Administration Hydralazine HCl 5 mg 06/24/20 13:06 06/25/20 07:08 Hydralazine 20 Mg/Ml Vial SLOW IVP 5 mg Q6H PRN Administration Blood Pressure Doxycycline Hyclate 100 mg/ 100 mls @ 100 mls/hr 06/23/20 21:00 06/25/20 08:57 Sodium Chloride IVPB 100 mls Q12HR LISBETH Administration Lamotrigine 100 mg 06/21/20 21:00 06/25/20 09:00 Lamotrigine 100 Mg Tab PO 100 mg Q12HR LISBETH Administration Memantine 10 mg 06/21/20 21:00 06/25/20 09:00 Memantine Hcl 10 Mg Tab PO 10 mg BID LISBETH Administration Metoprolol Succinate 25 mg 06/22/20 09:00 06/25/20 09:00 Metoprolol Succinate Xl 25 Mg Tab PO 25 mg DAILY LISBETH Administration Mometasone Furoate/Formoterol Fumar 1 puff 06/22/20 18:30 06/25/20 07:08 Mometasone 100 Mcg/Formoterol 5 Mcg 120 Puff Inhaler INH 1 puff BID-RT LISBETH Administration Quetiapine Fumarate 50 mg 06/21/20 21:00 06/25/20 09:00 Quetiapine Fumarate 25 Mg Tab PO 50 mg BID LISBETH Administration Simvastatin 5 mg 06/22/20 09:00 06/25/20 08:59 Simvastatin 5 Mg Tab PO 5 mg DAILY LISBETH Administration Sodium Chloride 10 ml 06/24/20 21:00 06/25/20 08:58 Flush - Normal Saline 10 Ml Syringe IVF 10 ml Q12HR LISBETH Administration Zinc Sulfate 220 mg 06/22/20 09:00 06/25/20 09:01 Zinc Sulfate 220 Mg Cap PO 07/06/20 09:01 220 mg DAILY LISBETH Administration - Exam Heart: negative: RRR, no murmur, no gallops, no rubs, normal peripheral pulses, irregular, diminshed peripheral pulses, murmur present, II/IV, III/IV Respiratory: negative: CTAB, no wheezes, no rales, no ronchi, normal chest expansion, no tachypnea, normal percussion, rales, rhonchi, tachypneic, wheezes Gastrointestinal: negative: soft, non-tender, non-distended, normal bowel sounds, no palpable masses, no hepatomegaly, no splenomegaly, no bruit, no guarding, no rigidity, tender to palpation, distended, diminished bowl sounds, voluntary guarding Extremities: 1+ LE edema Hosp A/P (1) Acute respiratory failure with hypoxia Code(s): J96.01 - ACUTE RESPIRATORY FAILURE WITH HYPOXIA Status: Acute (2) COVID-19 Code(s): U07.1 - COVID-19 Status: Acute (3) Acute metabolic encephalopathy Code(s): G93.41 - METABOLIC ENCEPHALOPATHY Status: Acute - Plan Patient currently is on soft restraints she is confused. We will start her home medications. She is currently on high flow. We will continue steroids. She is not a candidate for remdesivir. According to the patient's daughter she was supposed to be taken off isolation yesterday however when her oxygen level was checked it was low. We will give her convalescent plasma. We will continue inhalers. I did speak with her daughter Trinidad who is the POA and does not want the patient to be resuscitated per patient's wishes. Will make the patient DO NOT RESUSCITATE. 06/22 patient's oxygen levels were low her oxygen was titrated up. We will continue steroids for now. Patient continues to be confused. Patient received convalescent plasma. We will add Dulera. She is not a candidate for remdesivir. 06/23 pt was transferred to [facility] last night. pt is awake and follows command will try to wean off to high flow. crp elevated. 06/24 Folk with patient's daughter Trinidad indicating the patient's mentation continues to deteriorate and is not tolerating high flow. She desats in the 70s to 80s when she is transition to high flow for a few seconds. Overall prognosis is very poor. Patient's daughter at this time wants patient's brother to come and see the patient and she would prefer the patient to be on hospice.
--- NOTE | 2020-06-25 16:02 | PDOC.HOSPP ---
- Subjective Encounter Date: 06/25/20 Encounter Time: 12:30 Subjective: Patient continues to be on BiPAP. - Objective Vital Signs & Weight: Vital Signs (12 hours) Temp Pulse Resp BP BP 06/25/20 14:00 174/79 H 06/25/20 12:00 98.4 F 161/74 H 06/25/20 08:00 97.4 F L 194/82 H 06/25/20 07:09 99.3 F 97 24 H 190/84 H 06/25/20 07:08 97 190/84 H Weight Weight 178 lb Most Recent Monitor Data Heart Rate from ECG 104 NIBP 199/81 NIBP BP-Mean 120 Respiration from ECG 26 SpO2 94 I&O: 06/24/20 06/25/20 06/26/20 06:59 06:59 06:59 Intake Total 450 Output Total 350 100 400 Balance 100 -100 -400 Result Diagrams: 06/23/20 08:46 06/23/20 08:46 Hospitalist ROS - Review of Systems Other: Unable to obtain - Medication Medications: Active Medications Generic Name Dose Route Start Last Admin Trade Name Freq PRN Reason Stop Dose Admin Acetaminophen 650 mg 06/24/20 22:17 06/24/20 22:30 Acetaminophen 650 Mg Suppository MA 650 mg Q4H PRN Administration Headache/Fever or Pain Albuterol/Ipratropium 0 gm 06/21/20 15:00 06/25/20 12:13 Ipratropium/Albuterol Sulfate 4 Gm Aer IH 1 puff QID-RT LISBETH Administration Alprazolam 0.25 mg 06/22/20 09:26 06/23/20 22:28 Alprazolam 0.25 Mg Tab PO 0.25 mg BIDPRN PRN Administration Anxiety Amlodipine/Benazepril HCl 1 cap 06/22/20 09:00 06/25/20 09:01 Amlodipine 5 Mg/Benazepril 20 Mg Cap PO 1 cap DAILY LISBETH Administration Ascorbic Acid 1,000 mg 06/21/20 09:00 06/25/20 09:00 Ascorbic Acid 500 Mg Chewable Tablet PO 1,000 mg DAILY LISBETH Administration Aspirin 81 mg 06/22/20 09:00 06/25/20 09:00 Aspirin 81 Mg Enteric Coated Tablet PO 81 mg DAILY LISBETH Administration Calcium/Vitamin D 1 tab 06/22/20 09:00 06/25/20 09:00 Calcium Carbonate 600 Mg + Vit D Tab PO 07/06/20 09:01 1 tab DAILY LISBETH Administration Cholecalciferol 400 units 06/21/20 09:00 06/25/20 09:01 Cholecalciferol (Vitamin D3) 400 Units Tab PO 400 units DAILY LISBETH Administration Cyanocobalamin 1,000 mcg 06/22/20 09:00 06/25/20 09:01 Cyanocobalamin (Vitamin B-12) 1,000 Mcg Tab PO 1,000 mcg DAILY LISBETH Administration Dexamethasone 6 mg 06/23/20 09:00 06/25/20 08:58 Dexamethasone 4 Mg/Ml Vial SLOW IVP 6 mg DAILY LISBETH Administration Enoxaparin Sodium 40 mg 06/21/20 09:00 06/25/20 08:58 Enoxaparin Sodium 40 Mg/0.4 Ml Syringe SC 40 mg 0900 LISBETH Administration Fish Oil 2,000 mg 06/22/20 09:00 06/25/20 08:59 Fish Oil 1,000 Mg Cap PO 2,000 mg DAILY LISBETH Administration Folic Acid 1 mg 06/22/20 09:00 06/25/20 09:00 Folic Acid 1 Mg Tab PO 1 mg DAILY LISBETH Administration Gabapentin 100 mg 06/21/20 21:00 06/25/20 13:45 Gabapentin 100 Mg Cap PO 100 mg QID LISBETH Administration Hydralazine HCl 5 mg 06/24/20 13:06 06/25/20 07:08 Hydralazine 20 Mg/Ml Vial SLOW IVP 5 mg Q6H PRN Administration Blood Pressure Doxycycline Hyclate 100 mg/ 100 mls @ 100 mls/hr 06/23/20 21:00 06/25/20 08:57 Sodium Chloride IVPB 100 mls Q12HR LISBETH Administration Lamotrigine 100 mg 06/21/20 21:00 06/25/20 09:00 Lamotrigine 100 Mg Tab PO 100 mg Q12HR LISBETH Administration Memantine 10 mg 06/21/20 21:00 06/25/20 09:00 Memantine Hcl 10 Mg Tab PO 10 mg BID LISBETH Administration Metoprolol Succinate 25 mg 06/22/20 09:00 06/25/20 09:00 Metoprolol Succinate Xl 25 Mg Tab PO 25 mg DAILY LISBETH Administration Mometasone Furoate/Formoterol Fumar 1 puff 06/22/20 18:30 06/25/20 07:08 Mometasone 100 Mcg/Formoterol 5 Mcg 120 Puff Inhaler INH 1 puff BID-RT LISBETH Administration Quetiapine Fumarate 50 mg 06/21/20 21:00 06/25/20 09:00 Quetiapine Fumarate 25 Mg Tab PO 50 mg BID LISBETH Administration Simvastatin 5 mg 06/22/20 09:00 06/25/20 08:59 Simvastatin 5 Mg Tab PO 5 mg DAILY LISBETH Administration Sodium Chloride 10 ml 06/24/20 21:00 06/25/20 08:58 Flush - Normal Saline 10 Ml Syringe IVF 10 ml Q12HR LISBETH Administration Zinc Sulfate 220 mg 06/22/20 09:00 06/25/20 09:01 Zinc Sulfate 220 Mg Cap PO 07/06/20 09:01 220 mg DAILY LISBETH Administration - Exam Heart: negative: RRR, no murmur, no gallops, no rubs, normal peripheral pulses, irregular, diminshed peripheral pulses, murmur present, II/IV, III/IV Respiratory: negative: CTAB, no wheezes, no rales, no ronchi, normal chest e xpansion, no tachypnea, normal percussion, rales, rhonchi, tachypneic, wheezes Gastrointestinal: negative: soft, non-tender, non-distended, normal bowel sounds, no palpable masses, no hepatomegaly, no splenomegaly, no bruit, no guarding, no rigidity, tender to palpation, distended, diminished bowl sounds, voluntary guarding Extremities: 1+ LE edema Hosp A/P (1) Acute respiratory failure with hypoxia Code(s): J96.01 - ACUTE RESPIRATORY FAILURE WITH HYPOXIA Status: Acute (2) COVID-19 Code(s): U07.1 - COVID-19 Status: Acute (3) Acute metabolic encephalopathy Code(s): G93.41 - METABOLIC ENCEPHALOPATHY Status: Acute - Plan Patient currently is on soft restraints she is confused. We will start her home medications. She is currently on high flow. We will continue steroids. She is not a candidate for remdesivir. According to the patient's daughter she was supposed to be taken off isolation yesterday however when her oxygen level was checked it was low. We will give her convalescent plasma. We will continue inhalers. I did speak with her daughter Trinidad who is the POA and does not want the patient to be resuscitated per patient's wishes. Will make the patient DO NOT RESUSCITATE. 06/22 patient's oxygen levels were low her oxygen was titrated up. We will continue steroids for now. Patient continues to be confused. Patient received convalescent plasma. We will add Dulera. She is not a candidate for remdesivir. 06/[address] [facility] last night. pt is awake and follows command will try to wean off to high flow. crp elevated. 06/24 Folk with patient's daughter Trinidad indicating the patient's mentation continues to deteriorate and is not tolerating high flow. She desats in the 70s to 80s when she is transition to high flow for a few seconds. Overall prognosis is very poor. Patient's daughter at this time wants patient's brother to come and see the patient and she would prefer the patient to be on hospice. 06/25 spoke with Trinidad again today updated her they want to go ahead with hospice and make patient comfortable.
[2020-06-25 17:20] VITALS: BP 181/79; TEMP 99.1
--- NOTE | 2020-06-26 10:27 | PDOC.DS.DS ---
Provider - Provider Date of Admission: 06/20/20 21:21 Date of Discharge: 06/25/20 Admitting Provider: Edgar Lauren MD Primary Care Physician: Unknown Course - Hospital Course Hospital Course: She is a 80-year-old female who initially presented to the hospital from a [facility] and was diagnosed with Covid pneumonia at the group home. She apparently was on her 14-day quarantine when vitals were checked and her oxygen saturations were noted to be low. At this time she was transferred to the hospital for further evaluation. Patient initially was on high flow her oxygen saturations continue to worsen at this time she was put on a BiPAP. Patient's mentation continued to worsen she was unable to be weaned off the BiPAP. Per family and patient's wishes she did not want to be intubated given her advanced dementia. At this time family wanted the patient to be transition to hospice. All the questions for family were answered and patient was transition to hospice. Resuscitation Status: 06/21/20 17:08 Resuscitation Status Routine Resuscitation Status: DNAR: NO Resuscitation Discussed with: pt's daughter rupal - Labs Lab Results: 06/23/20 08:46 06/23/20 08:46 - Physical Exam Vitals: Weight Weight 178 lb Most Recent Monitor Data Heart Rate from ECG 108 NIBP 199/81 NIBP BP-Mean 120 Respiration from ECG 27 SpO2 95 Physical Exam: The patient was seen and examined on the day of discharge. Problem - Problem (1) Acute respiratory failure with hypoxia Code(s): J96.01 - ACUTE RESPIRATORY FAILURE WITH HYPOXIA Status: Acute (2) COVID-19 Code(s): U07.1 - COVID-19 Status: Acute (3) Acute metabolic encephalopathy Code(s): G93.41 - METABOLIC ENCEPHALOPATHY Status: Acute Plan - Discharge Medications Home Medications: Medication Instructions Recorded Confirmed Type Amlodipine/Benazepril [Lotrel 11/15] 1 cap PO DAILY 06/21/20 06/21/20 History Aspirin [Ecotrin] 81 mg PO DAILY 06/21/20 06/21/20 History Calcium Carbonate/Vitamin D3 1 tablet PO DAILY 06/21/20 06/21/20 History [Calcium 600 mg-D3 20 Mcg Tab] Cyanocobalamin (Vitamin B-12) 1,000 mcg SL DAILY 06/21/20 06/21/20 History [Vitamin B-12] Folic Acid 1 mg PO DAILY 06/21/20 06/21/20 History Gabapentin 1 capsule PO QID 06/21/20 06/21/20 History Lamotrigine [lamoTRIgine] 1 tablet PO Q12HR 06/21/20 06/21/20 History Melatonin 3 mg PO HS PRN 06/21/20 06/21/20 History Memantine HCl 10 mg PO BID 06/21/20 06/21/20 History Methotrexate Sodium [Methotrexate] 1 tablet PO Q7D 06/21/20 06/21/20 History Metoprolol Succinate 1 tablet PO DAILY 06/21/20 06/21/20 History Reserve-3 Fatty Acids/Fish Oil [Fish 2 cap PO DAILY 06/21/20 06/21/20 History Oil 1,000 mg Capsule] Pravastatin Sodium 10 mg PO DAILY 06/21/20 06/21/20 History QUEtiapine Fumarate [Seroquel] 1 tablet PO BID 06/21/20 06/21/20 History Zinc Sulfate 1 tablet PO DAILY 06/21/20 06/21/20 History Allergies: codeine Allergy (Verified 06/25/20 00:51) PER ER NOTES - Discharge Instructions Activity:: Activity as Tolerated - Follow up Plan Referrals: Unknown,Unknown [Primary Care Provider] - Disposition: HOSPICE MEDICAL FACILITY Quality - Care Measures CORE MEASURES:: N/A
--- NOTE | 2020-06-27 19:38 | DIS ---
DATE OF ADMISSION: 06/20/2020 DATE OF DISCHARGE: 06/25/2020 Admitted on hospice 06/25/2020. TIME OF : 8:45 p.m. DATE OF : 06/25/2020. HISTORY AND HOSPITAL COURSE: I was not able to see the patient prior to her passing. She was admitted to the hospital services and shortly . Review of records performed. She was hospitalized from [facility] due to COVID pneumonia. Hypoxia. Past medical history of dementia. She was not able to wean off BiPAP. Family opted for hospice and she peacefully. Body released to home. Job ID: [id number]
== END 2020-06-25 17:43 | disposition hospice, inpatient (51) | DRG 871 ==
LOC: ERS 18:14 → ERHOLD 21:21 → T4-B 06-21 05:49 → IMCU/EMU 06-23 01:39
PROVIDERS: ADMIT Student in an Organized Health Care Education/Training Program; ATTEND Internal Medicine
PROC: 8E0ZXY6 Isolation (ICD-10-PCS; 2020-06-20)
PROC: XW13325 Transfusion of Convalescent Plasma (Nonautologous) into Peripheral Vein, Percutaneous Approach, New Technology Group 5 (ICD-10-PCS; principal; 2020-06-21)
PROC: 5A09457 Assistance with Respiratory Ventilation, 24-96 Consecutive Hours, Continuous Positive Airway Pressure (ICD-10-PCS; 2020-06-23)
DX: A41.89 Other specified sepsis (principal); U07.1 COVID-19; J96.01 Acute respiratory failure with hypoxia; G93.41 Metabolic encephalopathy; J12.89 Other viral pneumonia; Z66 Do not resuscitate; Z51.5 Encounter for palliative care; E78.5 Hyperlipidemia, unspecified; E78.00 Pure hypercholesterolemia, unspecified; I10 Essential (primary) hypertension; M19.90 Unspecified osteoarthritis, unspecified site; G30.9 Alzheimer's disease, unspecified; F02.80 Dementia in other diseases classified elsewhere, unspecified severity, without behavioral disturbance, psychotic disturbance, mood disturbance, and anxiety; G40.909 Epilepsy, unspecified, not intractable, without status epilepticus; F32.9 Major depressive disorder, single episode, unspecified; Z78.1 Physical restraint status; Z79.899 Other long term (current) drug therapy; Z79.82 Long term (current) use of aspirin
CPT/HCPCS: 36415; 36416; 36430; 36600; 71045; 71275; 80048; 80053; 81001; 82550; 82728; 82805; 83605; 83735; 84484; 85025; 86140; 86850; 86900; 86901; 93005; 94660; 94760; 96365; 96375; J0360; J0456; J0696; J1100; J1650; J3490; P9017; Q9967

== ENCOUNTER 2020-06-25 17:52 | Inpatient (IN) | payer OTHER ==
[2020-06-25] MEDS ORDERED: Scopolamine 1.5 mg/72 hour Patch TOP SCH (18:15)
[2020-06-25] MEDS ORDERED: diphenhydrAMINE 50 MG/ML VIAL IVP PRN (18:15)
[2020-06-25] MEDS ORDERED: Ondansetron PF 4 MG/2 ML Vial IVP PRN (18:15)
[2020-06-25] MEDS: Morphine 2 MG/ML VIAL SLOW IVP PRN ×2 (18:25→19:19)
[2020-06-25] MEDS: Lorazepam 2 MG/ML VIAL SLOW IVP PRN ×2 (18:25→19:03)
[2020-06-25] MEDS ORDERED: Morphine 4 MG/ML VIAL SLOW IVP PRN (19:38)
[2020-06-25] MEDS ORDERED: Morphine 4 MG/ML VIAL SLOW IVP SCH ×2 (20:00)
[2020-06-25] MEDS ORDERED: Morphine 2 MG/ML VIAL SLOW IVP SCH ×2 (20:00→21:00)
== END 2020-06-25 20:45 | disposition expired | DRG 951 ==
LOC: IMCU/EMU 17:52
PROVIDERS: ADMIT Family Medicine; ATTEND Family Medicine
DX: Z51.5 Encounter for palliative care (principal); Z66 Do not resuscitate; U07.1 COVID-19; J96.01 Acute respiratory failure with hypoxia; J12.89 Other viral pneumonia; E87.2 Acidosis; G30.9 Alzheimer's disease, unspecified; F02.80 Dementia in other diseases classified elsewhere, unspecified severity, without behavioral disturbance, psychotic disturbance, mood disturbance, and anxiety; E78.5 Hyperlipidemia, unspecified; I10 Essential (primary) hypertension
CPT/HCPCS: J2060; J2270